=== PATIENT | female | born 1945 | race Caucasian/White ===

== ENCOUNTER 2016-07-24 09:15 | Outpatient (RCR) | payer MEDICARE, BC | END 2016-08-04 | disposition home or self-care (01) | LOC: PTY 09:15 | DX: S96.0 Injury of muscle and tendon of long flexor muscle of toe at ankle and foot level (principal); S92.902A Unspecified fracture of left foot, initial encounter for closed fracture; X58.XXXA Exposure to other specified factors, initial encounter; Y93.9 Activity, unspecified; Y92.9 Unspecified place or not applicable | CPT/HCPCS: 97035; 97110; 97140; 97161; G8978; G8979 ==

== ENCOUNTER 2016-08-07 09:00 | Outpatient (RCR) | payer MEDICARE, BC | END 2016-09-03 | disposition home or self-care (01) | LOC: PTY 09:00 | DX: M25.80 Other specified joint disorders, unspecified joint (principal); M76.892 Other specified enthesopathies of left lower limb, excluding foot; M76.891 Other specified enthesopathies of right lower limb, excluding foot | CPT/HCPCS: 97035; 97110; 97140; G8978; G8979 ==